=== PATIENT | female | born 1975 | race Caucasian/White ===

== ENCOUNTER 2017-10-05 06:07 | Day surgery (SDC) | payer BC, OTHER ==
[~2017-10-05] VITALS: Ht 170.2 cm; Wt 66.2 kg
[~2017-10-05 06:07] MED LIST: ACIDOPHILUS PR1 EACH PO; ALBU90OI INH; AZIT500 PO; BIOTIN1 MG PO; CEFD300 PO; CHOL10002 PO; Cough Syru100 MG/5 M PO; FLUO10 PO; IBUP600 PO; Junel Fe 1.5-31 EACH PO; NIAC250ER PO; PRED20 PO; Prozac40 MG PO; Verotin-Gr Cap1 EACH PO; Zithromax250 MG PO
[2017-10-05] MEDS ORDERED: MULTI-VITAMIN1 EACH PO (06:31)
--- NOTE | 2017-10-05 06:57 | NUR ---
Ambulatory in Day Surgery [facility] Paws warming gown applied. Surgical site prepped with 2% Chlorhexidine cloth wipe. Lungs clear T/O to Auscultation. History, Chart, Medications and Allergies reviewed before start of procedure. Patient confirms NPO status and agrees with scheduled surgery. Pre-Op teaching done. Pt verbalizes understanding.
--- NOTE | 2017-10-05 10:14 | NUR ---
PT ARRIVED TO UNIT AT APROX 1000. PT IS SLEEPY, BUT AWAKENS TO ANSWER QUESTIONS APPROPRIATLY. 3 STERI STRIPS C/D/I ON ABD, CURT PAD HAS SCANT AMT OF DRAINAGE PRESENT. POST-OP VITAL SIGNS IN PROGRESS.
--- NOTE | 2017-10-05 17:55 | NUR ---
SHIFT SUMMARY PT POD 0 LAVH. PT REPORTS PAIN 5/10-FEELS LIKE PERIOD CRAMPING AND REPORTS IT'S "TOLERABLE" PT IS RECIEVING SCHEDUALED TORADOL. PT TOLERATING REGULAR DIET WITH NO NAUSEA/VOMITING. SALINE LOCKED. 3 STERI STRIPS WITH SCANT AMT DRAINAGE PRESENT, CURT PAD DRY.
--- NOTE | 2017-10-06 03:08 | NUR ---
0308: PT SL AND FORBES OUTPUT IS CLEAR, YELLOW. TOLERATING PO INTAKE WELL. PT RATES PAIN 4/10 AND TOLERABLE STATING PREVIOUS PO PERCOCET "DIDN'T REALLY HELP" REMAINS ATTENTITVE TO CARE AT BEDSIDE AND CALL LIGHT IN REACH.
--- NOTE | 2017-10-06 04:54 | NUR ---
SUMMARY: POD1 LAVH BY DR. GAIL RICHARDSON. PT PAIN CONTROLLED TO TOLERABLE LEVEL @ 10 WITH PO PERCOCET AND IV TORDAL. PT OOB AND AMBULATES HALLS WITH , TOLERATES WELL. DENIES PASSING FLATUS AT TIME OF SUMMARY, BUT TOLERATING REG DIET WELL. FORBES PATENT CLEAR, YELLOW AND PLAN TO DC @ 0600 THIS MORNING. CURT PAD REMAINS DRY. ANTICIPATE DC LATER THIS DAY.
[2017-10-06 05:04] LABS: BASOPHILS PERCENT AUTO 0 % (0-2); EOSINOPHILS PERCENT AUTO 0 % (0-6); Hematocrit 37.9 % (33.0-51.0); Hemoglobin 13.1 g/dL (11.5-16.0); IMMATURE GRAN ABSOLUTE AUTO 0.05 K/mm3 (0.00-0.10); IMMATURE GRAN PERCENT AUTO 0 % (0-1); LYMPHOCYTES ABSOLUTE AUTO 2.01 K/mm3 (0.84-5.20); LYMPHOCYTES PERCENT AUTO 13 % (21-46); MONOCYTES PERCENT AUTO 8 % (4-13); Mean Corpuscular HGB Conc 34.6 g/dL (31.5-36.5); Mean Corpuscular Volume 92 fL (80-100); NEUTROPHILS ABSOLUTE AUTO 12.36 K/mm3 (1.96-9.15); NEUTROPHILS PERCENT AUTO 79 % (41-73); Platelet Count 302 K/mm3 (150-400); RDW Coefficient Variation 11.6 % (11.7-14.2); RDW Standard Deviation 39.4 fL (35.1-46.3); White Blood Cell Count 15.72 K/mm3 (4.00-11.30)
[2017-10-06] MEDS ORDERED: DOCU100 PO (09:02)
[2017-10-06] MEDS ORDERED: IBUP800 PO (09:03)
[2017-10-06] MEDS ORDERED: MINIVELLE1 EAC1 SC (09:03)
[2017-10-06] MEDS ORDERED: Percocet 5-3251 EACH PO (09:04)
--- NOTE | 2017-10-06 10:57 | NUR ---
DISCHARGE PT DISCHARGED HOME FROM UNIT AT APROX 1040. VOIDING, PAIN MANAGED WITH PO MEDICATION. PT GIVEN WRITTEN AND VERBAL DISCHARGE INSTRUCTIONS AND VERBALIZED UNDERSTANDING OF THESE INSTRUCTION. PT GIVEN WRITTEN PERSCRIPTION FOR PAIN MEDICATION AND ALL OTHER SCRIPTS CALLED TO PHARMACY BY GAIL SOLITARIO RN. IV REMOVED, PT LEFT FLOOR IN WHEELCHAIR.
[2018-09-02] MEDS ORDERED: MAGOXI400 PO (15:24)
== END 2017-10-06 10:44 | disposition home or self-care (01) ==
LOC: ORSCMMR 06:07 → SURS 09:48
PROVIDERS: Obstetrics & Gynecology
PROC: 0UT9FZZ Resection of Uterus, Via Natural or Artificial Opening With Percutaneous Endoscopic Assistance (ICD-10-PCS; principal; 2017-10-05 07:30)
PROC: 0UT2FZZ Resection of Bilateral Ovaries, Via Natural or Artificial Opening With Percutaneous Endoscopic Assistance (ICD-10-PCS; principal; 2017-10-05 07:30)
DX: N92.1 Excessive and frequent menstruation with irregular cycle (principal); R10.2 Pelvic and perineal pain; N83.292 Other ovarian cyst, left side; N80.0 Endometriosis of uterus; Z79.899 Other long term (current) drug therapy
CPT/HCPCS: 36415; 85025; 88307; 88342; J0171; J0690; J1885; J3010; J7120

== ENCOUNTER 2017-11-29 09:16 | Emergency (ER) | payer BC, OTHER, SELFPAY ==
[~2017-11-29] VITALS: Ht 170.2 cm; Wt 61.7 kg
[~2017-11-29 09:16] MED LIST changes: +DOCU100 PO; +IBUP800 PO; +MINIVELLE1 EAC1 SC; +MULTI-VITAMIN1 EACH PO; +Percocet 5-3251 EACH PO
[2017-11-29] MEDS ORDERED: Cheratussin AC118 ML PO (10:18)
[2018-09-02] MEDS ORDERED: MAGOXI400 PO (15:24)
== END 2017-11-29 10:23 | disposition home or self-care (01) ==
LOC: ER 09:16
DX: J06.9 Acute upper respiratory infection, unspecified (principal); Z91.048 Other nonmedicinal substance allergy status; Z79.899 Other long term (current) drug therapy; Z98.51 Tubal ligation status; Z90.49 Acquired absence of other specified parts of digestive tract
CPT/HCPCS: 99282

== ENCOUNTER 2018-09-06 13:28 | Day surgery (SDC) | payer BC, OTHER ==
[~2018-09-06] VITALS: Ht 170.2 cm; Wt 51.7 kg
[~2018-09-06 13:28] MED LIST changes: +Cheratussin AC118 ML PO; +MAGOXI400 PO
== END 2018-09-06 16:13 | disposition home or self-care (01) ==
LOC: ORSCMMR 13:28 → ORD 14:30 → ORSCMMR 16:13
PROVIDERS: Student in an Organized Health Care Education/Training Program
PROC: 0DB88ZX Excision of Small Intestine, Via Natural or Artificial Opening Endoscopic, Diagnostic (ICD-10-PCS; principal; 2018-09-06 14:30)
PROC: 0DB58ZX Excision of Esophagus, Via Natural or Artificial Opening Endoscopic, Diagnostic (ICD-10-PCS; principal; 2018-09-06 14:30)
PROC: 0DB68ZX Excision of Stomach, Via Natural or Artificial Opening Endoscopic, Diagnostic (ICD-10-PCS; principal; 2018-09-06 14:30)
PROC: 0DB48ZX Excision of Esophagogastric Junction, Via Natural or Artificial Opening Endoscopic, Diagnostic (ICD-10-PCS; principal; 2018-09-06 14:30)
PROC: 0DBE8ZX Excision of Large Intestine, Via Natural or Artificial Opening Endoscopic, Diagnostic (ICD-10-PCS; principal; 2018-09-06 14:30)
DX: R19.4 Change in bowel habit (principal); K21.9 Gastro-esophageal reflux disease without esophagitis; R10.9 Unspecified abdominal pain; R63.4 Abnormal weight loss; Z79.899 Other long term (current) drug therapy
CPT/HCPCS: 88305; 88342; J7120

== ENCOUNTER → 2020-03-05 | Outpatient (CLI) | payer BC, OTHER ==
[2020-03-06 15:09] LABS: HPV 16 Negative (Negative); HPV 18 Negative (Negative); HPV OTHER HR TYPES Negative (Negative)
== END | disposition home or self-care (01) ==
LOC: LAB 14:20 → LAB SHORT 14:20
PROVIDERS: Advanced Practice Midwife
DX: Z01.419 Encounter for gynecological examination (general) (routine) without abnormal findings (principal)
CPT/HCPCS: 87624; G0123

== ENCOUNTER → 2020-08-30 | Outpatient (CLI) | payer BC, OTHER ==
[2020-08-30 12:22] LABS: Hematocrit 44.9 % (33.0-51.0); Mean Corpuscular HGB 31.6 pg (26.0-34.0); Mean Corpuscular HGB Conc 33.4 g/dL (31.5-36.5); Mean Corpuscular Volume 95 fL (80-100); Mean Platelet Volume 9.6 fL (9.1-12.4); Platelet Count 282 K/mm3 (150-400); RDW Coefficient Variation 10.9 % (11.7-14.2); RDW Standard Deviation 38.2 fL (35.1-46.3); Red Blood Cell Count 4.74 M/mm3 (3.80-5.20); White Blood Cell Count 4.52 K/mm3 (4.00-11.30)
[2020-08-30 12:26] LABS: Alanine Aminotransfer (ALT/SGP 23 U/L (12-78); Albumin/Globulin Ratio 1.2 (0.8-1.8); Alk Phos 60 U/L (50-136); Anion Gap 6 mmol/L (6-16); Aspartate Aminotrans (AST/SGOT 14 U/L (12-37); Bilirubin, Direct <0.1 mg/dL (0.0-0.3); Bilirubin, Indirect Unable to Calculate mg/dL (0.1-0.7); Bilirubin, Total 0.5 mg/dL (0.1-1.0); Blood Urea Nitrogen 10 mg/dL (8-24); Bun/Creatinine Ratio 14.5 (12.0-20.0); CO2, Blood 29 mmol/L (21-32); Calcium, Blood 9.4 mg/dL (8.5-10.1); Chloride, Blood 108 mmol/L (98-108); Creatinine, Blood 0.69 mg/dL (0.40-1.00); Globulin, Blood 3.3 g/dL (2.2-4.0); Glomerular Filtration Rate >60 (60-); Glucose, Blood 81 mg/dL (70-99); Sodium, Blood 143 mmol/L (136-145); Total Protein, Blood 7.3 g/dL (6.4-8.2)
[2020-08-30 12:40] LABS: Thyroid Stimulating Hormone 1.52 uIU/mL (0.360-4.800); Thyroxine (T4) 7.8 ug/dL (4.8-13.9)
[2020-08-30 12:47] LABS: BASOPHILS PERCENT MAN 0 % (0-2); EOSINOPHILS ABSOLUTE MAN 0.04 K/mm3 (0.00-0.68); EOSINOPHILS PERCENT MAN 1 % (0-6); LYMPHOCYTES % ATYPICAL MANUAL 1 % (0-0); LYMPHOCYTES ABSOLUTE MAN 2.39 K/mm3 (0.84-5.20); LYMPHOCYTES PERCENT MAN 52 % (21-46); MONOCYTES ABSOLUTE MAN 0.45 K/mm3 (0.16-1.47); MONOCYTES PERCENT MAN 10 % (4-13); NEUTROPHILS ABSOLUTE MAN 1.62 K/mm3 (1.96-9.15); SEG NEUTROPHILS PERCENT MAN 36 % (41-73); TOTAL CELLS COUNTED 100
== END | disposition home or self-care (01) ==
LOC: LAB SHORT 07:49 → LAB 07:49
PROVIDERS: Nurse Practitioner
DX: R53.82 Chronic fatigue, unspecified (principal)
CPT/HCPCS: 80053; 82248; 84436; 84443; 85007; 85027

== ENCOUNTER → 2024-09-08 | Outpatient (CLI) | payer OTHER ==
[2024-09-08 18:59] LABS: BASOPHILS ABSOLUTE AUTO 0.03 K/mm3 (0.00-0.23); BASOPHILS PERCENT AUTO 1 % (0-2); EOSINOPHILS ABSOLUTE AUTO 0.03 K/mm3 (0.00-0.68); EOSINOPHILS PERCENT AUTO 1 % (0-6); Hematocrit 41.3 % (33.0-51.0); Hemoglobin 14.4 g/dL (11.5-16.0); IMMATURE GRAN ABSOLUTE AUTO 0.01 K/mm3 (0.00-0.10); IMMATURE GRAN PERCENT AUTO 0 % (0-1); LYMPHOCYTES ABSOLUTE AUTO 2.15 K/mm3 (0.84-5.20); LYMPHOCYTES PERCENT AUTO 35 % (21-46); MONOCYTES PERCENT AUTO 7 % (4-13); Mean Corpuscular HGB 31.2 pg (26.0-34.0); Mean Corpuscular HGB Conc 34.9 g/dL (31.5-36.5); Mean Corpuscular Volume 89 fL (80-100); Mean Platelet Volume 9.6 fL (9.1-12.4); NEUTROPHILS ABSOLUTE AUTO 3.58 K/mm3 (1.96-9.15); NEUTROPHILS PERCENT AUTO 58 % (41-73); Platelet Count 325 K/mm3 (150-400); RDW Coefficient Variation 11.9 % (11.7-14.2); RDW Standard Deviation 38.7 fL (35.1-46.3); Red Blood Cell Count 4.62 M/mm3 (3.80-5.20)
[2024-09-08 19:50] LABS: Albumin/Globulin Ratio 1.5 (0.8-1.8); Bilirubin, Total 0.4 mg/dL (0.1-1.0); Bun/Creatinine Ratio 9.4 (12.0-20.0); Calcium, Blood 9.1 mg/dL (8.5-10.1); Creatinine, Blood 0.74 mg/dL (0.40-1.00); Globulin, Blood 2.7 g/dL (2.2-4.0); Potassium, Blood 3.8 mmol/L (3.5-5.5); Total Protein, Blood 6.7 g/dL (6.4-8.2)
[2024-09-12 12:43] LABS: ANTI-NUCLEAR AB ANA,IGG ELISA None Detected (None Detected)
[2024-09-13 07:47] LABS: CYCLIC CITRULLINATED PEP,IGG/A 3 Units (0-19)
== END | disposition home or self-care (01) ==
LOC: LAB 17:12 → LAB SHORT 17:12
PROVIDERS: Internal Medicine Rheumatology
DX: M25.50 Pain in unspecified joint (principal)
CPT/HCPCS: 80053; 85025; 85651; 86038; 86200